=== PATIENT | female | born 1990 | race Caucasian/White ===

== ENCOUNTER 2018-02-05 15:33 | Inpatient (IN) | payer MEDICAID ==
[~2018-02-05] VITALS: Ht 172.7 cm; Wt 63.0 kg
[2018-02-05] MEDS ORDERED: prenatal (15:48)
[2018-02-05] MEDS ORDERED: EPHEDRINE SULFATE 50MG/ML VIAL ONE (16:31)
[2018-02-05] MEDS ORDERED: BUPIVACAINE HCL/DEXTROSE/PF 0.75% 2ML AMP INJ ONE (16:31)
[2018-02-05 17:24] LABS: BASOPHILS % 0.3 % (0.0-2.0); EOSINOPHILS % 1.2 % (0.0-5.0); HEMATOCRIT. 33.8 % (36.0-48.0); LYMPHOCYTES % 28.6 % (20.0-50.0); MEAN PLATELET VOLUME 8.4 fl (7.4-10.4); MONOCYTES % 4.2 % (2.0-8.0); NEUTROPHILS % 65.7 % (40.0-76.0); PLATELET 196 x1000/uL (130-400); RED BLOOD CELL COUNT 3.76 mill/uL (4.2-5.4); RED CELL DISTRIBUTION WIDTH 14.2 % (11.6-14.6)
[2018-02-05 17:29] LABS: CHLORIDE 105 mEq/L (98-107); PROTHROMBIN TIME 9.9 sec (9.1-11.1)
[2018-02-05] MEDS ORDERED: MAGNESIUM 4 G PREMIX 100 ML IV NR ×2 (18:30→20:00)
[2018-02-05] MEDS ORDERED: MAGNESIUM 1 G PREMIX 100 ML IV NR (18:30)
[2018-02-05] MEDS ORDERED: ONDANSETRON HCL 4MG/2ML INJ ONE (19:14)
[2018-02-05] MEDS ORDERED: KETOROLAC 30MG/ML VIAL ONE (19:14)
[2018-02-05] MEDS ORDERED: CEFAZOLIN SODIUM 1000MG/VIAL ONE (19:14)
[2018-02-05] MEDS ORDERED: MAGNESIUM 20 G PREMIX (L & D) 500 ML IV SCH (19:15)
[2018-02-05] MEDS ORDERED: CEFAZOLIN SODIUM 1000MG/VIAL IV SCH (22:00)
[2018-02-05] MEDS ORDERED: AZITHROMYCIN 500 MG in DEXT 5% WATER 250 ML IV SCH (22:00)
[2018-02-06] MEDS: KETOROLAC 30MG/ML VIAL IV PRN ×2 (00:43→20:21)
[2018-02-06] MEDS: CEFAZOLIN 1000MG PREMIX 50 ML IV SCH ×2 (04:42→20:48)
[2018-02-06] MEDS ORDERED: LACTATED RINGERS 1,000 ML IV SCH (11:15)
[2018-02-06 12:05] LABS: HEPATITIS B SURFACE ANTIGEN NEGATIVE; RUBELLA IGG 55.6 IU/mL (4.99-10)
[2018-02-06] MEDS: MAGNESIUM 20 G PREMIX (L & D) 500 ML IV SCH (14:51)
[2018-02-06 15:30] VITALS: BP 113/70
[2018-02-06 16:24] VITALS: BP 116/72
[2018-02-06 18:00] VITALS: BP 105/68
[2018-02-06 20:00] VITALS: BP 108/67
[2018-02-06] MEDS ORDERED: AZITHROMYCIN 500 MG in DEXT 5% WATER 250 ML IV SCH (22:00)
[2018-02-07] MEDS: MAGNESIUM 20 G PREMIX (L & D) 500 ML IV SCH (00:35)
[2018-02-07] MEDS: CEFAZOLIN 1000MG PREMIX 50 ML IV SCH ×2 (04:39→14:41)
[2018-02-07 08:00] VITALS: BP 110/70
== END 2018-02-07 21:57 | disposition home or self-care (01) | DRG 546 ==
LOC: EDBEDREQ 16:52 → ER 17:42 → ORIP 17:43 → OBSVTOIN 17:43 → INTOOBSV 17:43 → L&D 20:50 → 7EST PP/OB 02-06 14:31
PROVIDERS: ADMIT Acupuncturist; ATTEND Acupuncturist
PROC: 0UVC7ZZ Restriction of Cervix, Via Natural or Artificial Opening (ICD-10-PCS; principal; 2018-02-05 17:00)
DX: O34.32 Maternal care for cervical incompetence, second trimester (principal); O46.092 Antepartum hemorrhage with other coagulation defect, second trimester; D57.1 Sickle-cell disease without crisis; O99.012 Anemia complicating pregnancy, second trimester; O99.820 Streptococcus B carrier state complicating pregnancy; Z96.659 Presence of unspecified artificial knee joint; Z3A.19 19 weeks gestation of pregnancy; Z90.49 Acquired absence of other specified parts of digestive tract; Z98.891 History of uterine scar from previous surgery; Z87.440 Personal history of urinary (tract) infections
CPT/HCPCS: 36415; 80053; 83735; 85025; 85610; 86592; 86762; 87340; 88304; 99285; J0456; J0690; J1885; J2405; J3475; J3490; J7040; J7060; J7120